=== PATIENT | female | born 1955 | race Caucasian/White ===

== ENCOUNTER 2020-05-01 13:47 | Emergency (ER) | payer OTHER ==
[~2020-05-01 13:47] MED LIST: AMIODARONE HCL200 MG PO; ARMOUR THYROID30 MG PO; AZITHROMYCIN250 MG PO; DULOXETINE HCL30 MG PO; MAGNESIUM PO; METOPROLOL SUCC25 MG PO; MULTIVITAMINS1 EAC1 PO; VITAMIN D3 PO; VITAMIN D31000 UNIT PO; XARELTO20 MG PO; [UNRECOGNIZED DRUG - OTHER] PO
[2020-05-01 14:39] LABS: BASOPHIL 1.1 % (0-2); EOSINOPHIL 2.8 % (0-7); HCT 43.6 % (37.0-47.0); HGB 14.9 g/dl (12.5-16.0); LYMPHOCYTE 42.1 % (15-48); MCH 29.9 pg (25.0-31.0); MCHC 34.2 g/dL (32.0-36.0); MCV 87.6 fL (78.0-100.0); MONOCYTE 6.8 % (0-12); MPV 10.9 fL (6.0-9.5); NRBC 0; PLT 207 K/uL (150-400); RBC 4.98 M/uL (4.20-5.40); RDW 12.5 % (11.5-14.0); WBC 6.2 K/uL (4.0-10.5)
[2020-05-01 14:58] LABS: INR 1.04 (0.9-1.2); PROTHROMBIN TIME 12.9 SECONDS (11.4-13.6)
[2020-05-01 15:13] LABS: ALBUMIN 4.1 g/dL (3.4-5.0); BILIRUBIN - TOTAL 0.3 mg/dL (0.2-1.0); BUN/CREAT RATIO (CALC) 28.8 RATIO; CREATININE 0.66 mg/dL (0.51-0.95); GLOBULIN (CALCULATION) 3.7 g/dL; POTASSIUM 3.7 mmol/L (3.5-5.1); TOTAL PROTEIN 7.8 g/dL (6.4-8.2)
== END 2020-05-01 22:10 | disposition other institution (70) ==
LOC: FER 13:47
PROVIDERS: Emergency Medicine
DX: I48.91 Unspecified atrial fibrillation (principal); E03.9 Hypothyroidism, unspecified; Z98.890 Other specified postprocedural states; Z86.14 Personal history of Methicillin resistant Staphylococcus aureus infection; Z88.2 Allergy status to sulfonamides; Z88.8 Allergy status to other drugs, medicaments and biological substances; Z79.899 Other long term (current) drug therapy; Z20.822 Contact with and (suspected) exposure to COVID-19
CPT/HCPCS: 36415; 71045; 80053; 84484; 85025; 85610; 93005; U0002